=== PATIENT | female | born 1980 | race Caucasian/White ===

== ENCOUNTER → 2019-05-21 | Outpatient (CLI) | payer BC ==
--- NOTE | 2019-05-21 14:57 | MM ---
Reason for exam: screening (asymptomatic). Baseline mammogram. History: Patient is nulliparous. Family history of breast cancer in mother at age 50 and breast cancer in maternal aunt at age 50. Took hormonal contraceptives for 10 years. Physical Findings: Nurse did not find any significant physical abnormalities on exam. MG 3D Screening Mammo W/Cad Bilateral CC and MLO view(s) were taken. The breast tissue is heterogeneously dense. This may lower the sensitivity of mammography. No suspicious abnormality on the left breast. Right upper outer quadrant focal asymmetry on baseline. These results were verbally communicated with the patient and result sheet given to the patient on 05/21/19. ASSESSMENT: Incomplete: need additional imaging evaluation, BI-RAD 0 RECOMMENDATION: Ultrasound of the right breast. (upper outer quadrant)
--- NOTE | 2019-05-21 14:59 | USB ---
Reason for exam: additional evaluation requested from abnormal screening. History: Patient is nulliparous. Family history of breast cancer in mother at age 50 and breast cancer in maternal aunt at age 50. Took hormonal contraceptives for 10 years. Physical Findings: Breast exam preformed at baseline screening. US Breast Workup Limited RT Right limited breast ultrasound including focal area of concern, retroareolar and axilla demonstrates a 10 x 5 x 6mm cystic cluster at 11 o'clock. Multiple cysts visualized. These results were verbally communicated with the patient and result sheet given to the patient on 05/21/19. ASSESSMENT: Benign, BI-RAD 2 RECOMMENDATION: Return to routine screening mammogram schedule for both breasts.
== END | disposition home or self-care (01) ==
LOC: RADMAMWWP 13:02
PROVIDERS: ATTEND Internal Medicine
DX: Z12.31 Encounter for screening mammogram for malignant neoplasm of breast (principal); R92.8 Other abnormal and inconclusive findings on diagnostic imaging of breast
CPT/HCPCS: 77063; 77067

== ENCOUNTER → 2019-12-08 | Outpatient (CLI) | payer BC ==
--- NOTE | 2019-12-08 20:32 | MR ---
EXAMINATION TYPE: MR foot LT wo con DATE OF EXAM: 12/08/2019 COMPARISON: None HISTORY: Pain along medial aspece of left foot Multiplanar multiecho imaging of the left foot was performed without contrast. There is subcutaneous edema around the lower tibia. There is mild soft tissue swelling and subcutaneo us edema of the forefoot. The metatarsals are intact. The toes appear intact. There is no evidence of a soft tissue mass. I see no bony destructive process. There is no pathologic fluid collection. Ther e is plantar calcaneal spur formation. Achilles tendon is intact. Medial and lateral flexor tendons o f the foot appear intact. The collateral ligaments appear intact. There is very slight increased flui d at the ankle joint. Bones of the hindfoot appear intact. The plantar fascia appears intact. IMPRESSION: Subcutaneous edema over the forefoot and around the lower leg. No fracture seen. Small ankle joint ef fusion suggestive of nonspecific mild synovitis.
== END | disposition home or self-care (01) ==
LOC: RADMRIMAIN 08:19
PROVIDERS: ATTEND Physician Assistant
DX: M25.475 Effusion, left foot (principal)

== ENCOUNTER → 2022-01-21 | Outpatient (CLI) | payer BC ==
--- NOTE | 2022-01-22 08:17 | MM ---
Reason for Exam: Screening (asymptomatic). Last mammogram was performed 2 year(s) and 8 month(s) ago. Patient History: Menarche at age 10. Patient has no children. Patient used Hormonal Contraceptives for 10 years. Maternal aunt had breast cancer, age 50. Mother had breast cancer, age 50. Last menstrual period: 01/21/2022 Risk Values: Gwen 5 year model risk: 1.4%. NCI Lifetime model risk: 20.1%. Prior Study Comparison: 05/21/2019 Bilateral Screening Mammogram, [facility]. Tissue Density: The breast tissue is heterogeneously dense. This may lower the sensitivity of mammography. Findings: Analyzed By CAD. There is no suspicious group of microcalcifications or new suspicious mass in either breast. Stable chronic nodularity in the left breast. No significant change from prior exam. Overall Assessment: Benign, BI-RAD 2 Management: Screening Mammogram of both breasts in 1 year. A clinical breast exam by your physician is recommended on an annual basis and results should be correlated with mammographic findings. Electronically signed and approved by: Cristóbal Del Valle D.O.
== END | disposition home or self-care (01) ==
LOC: RADMAMWWP 16:49
PROVIDERS: ATTEND Internal Medicine
DX: Z12.31 Encounter for screening mammogram for malignant neoplasm of breast (principal)
CPT/HCPCS: 77063; 77067

== ENCOUNTER → 2023-02-10 | Outpatient (CLI) | payer OTHER ==
--- NOTE | 2023-02-10 11:45 | MM ---
Reason for Exam: Screening (asymptomatic). Last screening mammogram was performed 12 month(s) ago. Patient History: Menarche at age 10. Patient has no children. Patient used Hormonal Contraceptives for 10 years. Maternal aunt had breast cancer, age 50. Mother had breast cancer, age 50. Risk Values: Gwen 5 year model risk: 1.5%. NCI Lifetime model risk: 19.9%. Prior Study Comparison: 05/21/2019 Bilateral Screening Mammogram, [facility]. 01/21/2022 Bilateral MG 3D screening mammo w/cad, [facility]. Tissue Density: The breast tissue is heterogeneously dense. This may lower the sensitivity of mammography. Findings: Analyzed By CAD. There is no suspicious group of microcalcifications or new suspicious mass. Overall Assessment: Negative, BI-RAD 1 Management: Screening Mammogram of both breasts in [address] [facility] will attempt to contact patient to return for supplemental views and ultrasound if indicated. Patient should continue monthly self-breast exams. A clinical breast exam by your physician is recommended on an annual basis. This exam should not preclude additional follow-up of suspicious palpable abnormalities. Note on Gwen scores and lifetime risk: 1. A Gwen score greater than 3% is considered moderate risk. If this is the case, consider specialist referral to assess eligibility for a risk reducing agent. 2. If overall lifetime risk for the development of breast cancer is 20% or higher, the patient may qualify for future screening with alternating mammogram and breast MRI. Electronically signed and approved by: Sigifredo Cleary DO
== END | disposition home or self-care (01) ==
LOC: RADMAMWWP 07:12
PROVIDERS: ATTEND Internal Medicine
DX: Z12.31 Encounter for screening mammogram for malignant neoplasm of breast (principal); Z80.3 Family history of malignant neoplasm of breast
CPT/HCPCS: 77063; 77067

== ENCOUNTER → 2024-07-16 | Outpatient (CLI) | payer OTHER ==
--- NOTE | 2024-07-17 07:29 | MM ---
Reason for Exam: Screening (asymptomatic). Last mammogram was performed 1 year(s) and 5 month(s) ago. Patient History: Menarche at age 10. Patient has no children. Patient used Hormonal Contraceptives for 10 years. Maternal aunt had breast cancer, age 50. Mother had breast cancer, age 50. Last menstrual period: 07/04/2024 Risk Values: Gwen 5 year model risk: 1.7%. NCI Lifetime model risk: 19.7%. Prior Study Comparison: 05/21/2019 Bilateral Screening Mammogram, [facility]. 01/21/2022 Bilateral MG 3D screening mammo w/cad, [facility]. 02/10/2023 Bilateral MG 3D screening mammo w/cad, [facility]. Tissue Density: The breasts are heterogeneously dense, which may obscure small masses. Findings: Analyzed By CAD. There is no suspicious group of microcalcifications or new suspicious mass in either breast. Overall Assessment: Negative, BI-RAD 1 Management: Screening Mammogram of both breasts in 1 year. . Patient should continue monthly self-breast exams. A clinical breast exam by your physician is recommended on an annual basis. This exam should not preclude additional follow-up of suspicious palpable abnormalities. Note on Gwen scores and lifetime risk: 1. A Gwen score greater than 3% is considered moderate risk. If this is the case, consider specialist referral to assess eligibility for a risk reducing agent. 2. If overall lifetime risk for the development of breast cancer is 20% or higher, the patient may qualify for future screening with alternating mammogram and breast MRI. [facility], , 07/17/2024 7:27 AM. Electronically signed and approved by: Karthik Aguero M.D. [facility]
== END | disposition home or self-care (01) ==
LOC: RADMAMWWP 16:13
PROVIDERS: ATTEND Internal Medicine
DX: Z12.31 Encounter for screening mammogram for malignant neoplasm of breast (principal); R92.333 Mammographic heterogeneous density, bilateral breasts; Z92.0 Personal history of contraception; Z80.3 Family history of malignant neoplasm of breast
CPT/HCPCS: 77063; 77067